=== PATIENT | male | born 1945 | race Caucasian/White ===

== ENCOUNTER 2023-04-12 06:51 | Outpatient (OUT) | payer MEDICARE, SELFPAY ==
--- NOTE | 2023-04-12 07:15 | MR_ITS ---
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 There is no diffusion abnormality.. There are few areas of T2 hyperintensity in the central white matter. This no cortical abnormality. There is no mass, mass effect, nor hydrocephalus. The vascular flow voids are patent. The extra-axial structures appear normal. Postcontrast, there is no abnormal enhancement. The internal auditory canals are symmetric. There is normal signal in the seventh and eighth intracranial nerves. There is normal signal in the cochlea and semicircular canals.. The mastoid air cells are patent. Postcontrast, there is no abnormal enhancement There is mild ethmoid and sphenoid sinus mucosal disease. The orbits, sella, and craniocervical junction are unremarkable MR/MR head/brain wo/w con IMPRESSION: Mild parenchymal volume loss. No diffusion abnormality. Very mild T2 hyperintensity white matter. Most likely sequela small vessel ischemic change or other demyelinating process. Mild ethmoid and sphenoid sinus mucosal disease. Unremarkable MR appearance of the internal auditory canals Electronically authenticated by: MADIE PRITCHETT Date: 04/12/2023 13:00
[2023-04-12 07:21] LABS: Estimated GFR (African America >60 (>=60); Estimated GFR (Non-African Ame >60 (>=60)
== END 2023-04-12 06:52 | disposition home or self-care (01) ==
LOC: LAB 06:55
PROVIDERS: Visit Provider Otolaryngology
DX: H93.12 Tinnitus, left ear (principal)
CPT/HCPCS: 36415; 70553; 82565; A9575